=== PATIENT | male | born 2000 | race Caucasian/White ===

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

== ENCOUNTER 2020-10-07 13:55 | Emergency (ER) | payer SELFPAY ==
[~2020-10-07 13:55] MED LIST: ONDANSETRON ODT4 MG PO; ONDANSETRON ODT4 MG SL
== END 2020-10-07 18:13 | disposition left against medical advice (07) ==
LOC: FER 13:55
DX: F19.129 Other psychoactive substance abuse with intoxication, unspecified (principal)
CPT/HCPCS: 99283